=== PATIENT | male | born 1995 | race Caucasian/White ===

== ENCOUNTER 2018-09-23 22:50 | Emergency (ER) | payer SELFPAY ==
[~2018-09-23 22:50] MED LIST: ACET500C5 PO; CEPH-443 PO
== END 2018-09-23 22:55 | disposition left against medical advice (07) ==
LOC: FTE 22:50
DX: Z53.21 Procedure and treatment not carried out due to patient leaving prior to being seen by health care provider (principal)

== ENCOUNTER 2018-09-25 12:30 | Emergency (ER) | payer OTHER ==
[~2018-09-25] VITALS: Wt 97.6 kg
--- NOTE | 2018-09-25 16:04 | ERD ---
ER Documentation Chief Complaint Chief Complaint L index finger sutures to be removed: placed here last Saturday. HPI Patient is a 22-year-old male who presents the ER for concerns of suture removal. Patient sustained laceration to his left index finger on 09-14-18. Patient denies any fevers or chills. Patient does report taking Rx as prescribed. Patient denies any numbness or tingling. ROS All systems reviewed and are negative except as per history of present illness. Medications Home Meds Active Scripts Acetaminophen* (Tylophen*) 500 Mg Capsule, 1 CAP PO Q6H PRN for PAIN AND OR ELEVATED TEMP, #20 CAP Prov:NIRANJAN WOLFE-C 09/14/18 Cephalexin* (Keflex*) 500 Mg Capsule, 500 MG PO BID for 7 Days, CAP Prov:NIRANJAN WOLFE-C 09/14/18 Reported Medications [None] No Conflict Check 11/07/09 Allergies Allergies: Coded Allergies: No Known Allergies (Verified Allergy, Mild, 11/07/09) PMhx/Soc Medical and Surgical Hx: pt denies Medical Hx, pt denies Surgical Hx History of Surgery: No Anesthesia Reaction: No Hx Neurological Disorder: No Hx Respiratory Disorders: No Hx Cardiac Disorders: No Hx Psychiatric Problems: No Hx Miscellaneous Medical Probl: No Hx Alcohol Use: No Hx Substance Use: No Hx Tobacco Use: No Smoking Status: Never smoker FmHx Family History: No diabetes Physical Exam Vitals Vital Signs Date Temp Pulse Resp B/P (MAP) Pulse Ox O2 O2 Flow FiO2 Time Delivery Rate 09/25/18 98.7 53 16 152/78 96 13:20 (102) Physical Exam GENERAL: Well-developed, well-nourished male. Appears in no acute distress. HEAD: Normocephalic, atraumatic. EYES: Pupils are equally reactive bilaterally. EOMs grossly intact. No conjunctival erythema. NECK: Supple. No meningismus. Normal range of motion of the neck. LUNG: Clear to auscultation bilaterally. No rhonchi, wheezing, rales or coarse breath sounds. HEART: Regular rate and rhythm. No murmurs, rubs or gallops. EXTREMITIES: Equal pulses bilaterally. No peripheral clubbing, cyanosis or edema. No unilateral leg swelling. NEUROLOGIC: Alert and oriented. Moving all four extremities without any difficulty. Normal speech. Steady gait. SKIN: Healing 2 cm laceration noted to the left index finger. [address] No wound dehiscence. No active bleeding or discharge. Procedures/MDM Suture Removal by me: 2 Sutures removed with tweezers and scissors without incident. Wound shows no evidence of infection, foreign body, neurologic injury, vascular injury, open joint or tendon laceration. Patient to follow up PRN. Departure Diagnosis: Primary Impression: Encounter for removal of sutures Condition: Stable Patient Instructions: Suture Removal, No Complication Referrals: [facility] YOU HAVE RECEIVED A MEDICAL SCREENING EXAM AND THE RESULTS INDICATE THAT YOU DO NOT HAVE A CONDITION THAT REQUIRES URGENT TREATMENT IN THE EMERGENCY DEPARTMENT. FURTHER EVALUATION AND TREATMENT OF YOUR CONDITION CAN WAIT UNTIL YOU ARE SEEN IN YOUR DOCTORS OFFICE WITHIN THE NEXT 1-2 DAYS. IT IS YOUR RESPONSIBILITY TO MAKE AN APPOINTMENT FOR FOLOW-UP CARE. IF YOU HAVE A PRIMARY DOCTOR --you should call your primary doctor and schedule an appointment IF YOU DO NOT HAVE A PRIMARY DOCTOR YOU CAN CALL OUR PHYSICIAN REFERRAL HOTLINE AT IF YOU CAN NOT AFFORD TO SEE A PHYSICIAN YOU CAN CHOSE FROM THE FOLLOWING [facility] [address] [facility] [address] [facility] [address] [facility] [address] [facility] [facility] [address] [facility]. [facility]. [address] [facility]. [facility] YOU HAVE RECEIVED A MEDICAL SCREENING EXAM AND THE RESULTS INDICATE THAT YOU DO NOT HAVE A CONDITION THAT REQUIRES URGENT TREATMENT IN THE EMERGENCY DEPARTMENT. FURTHER EVALUATION AND TREATMENT OF YOUR CONDITION CAN WAIT UNTIL YOU ARE SEEN IN YOUR DOCTORS OFFICE WITHIN THE NEXT 1-2 DAYS. IT IS YOUR RESPONSIBILITY TO MAKE AN APPOINTMENT FOR FOLOW-UP CARE. IF YOU HAVE A PRIMARY DOCTOR --you should call your primary doctor and schedule and appointment IF YOU DO NOT HAVE A PRIMARY DOCTOR YOU CAN CALL OUR PHYSICIAN REFERRAL HOTLINE AT . IF YOU CAN NOT AFFORD TO SEE A PHYSICIAN YOU CAN CHOSE FROM THE FOLLOWING [facility] INSTITUTIONS: [facility] [address] [place] [address] [facility] [address] [place] [address] [facility] [address] [place] [address] Additional Instructions: Call your primary care doctor TOMORROW for an appointment during the next 1-2 days.See the doctor sooner or return here if your condition worsens before your appointment time. NIRANJAN WOLFE PA-C Sep 25, 2018 16:04
== END 2018-09-25 16:07 | disposition home or self-care (01) ==
LOC: FTE 12:30
DX: Z48.02 Encounter for removal of sutures (principal)
CPT/HCPCS: 99281

== ENCOUNTER 2019-01-21 00:54 | Emergency (ER) | payer OTHER ==
[~2019-01-21] VITALS: Ht 177.8 cm; Wt 98.7 kg
[2019-01-21 01:02] VITALS: Ht 177.8 cm; Wt 98.7 kg
[2019-01-21] MEDS ORDERED: CYCLOBENZAPRINE 10 MG TAB PO ONE (04:00)
[2019-01-21] MEDS ORDERED: IBUPROFEN 600 MG TAB PO ONE (04:00)
[2019-01-21] MEDS ORDERED: IBUP-1542 PO (04:01)
[2019-01-21] MEDS ORDERED: CYCL10TA7 PO (04:02)
[2019-01-21 05:03] VITALS: BP 134/77; PULSE 52; RESP 18
--- NOTE | 2019-01-27 05:00 | ERD ---
ER Documentation Chief Complaint Chief Complaint BACK PAIN RADIATING UP SHOULDER ON/OFF X3DAYS HPI 23yo M presents to ED for evaluation of right sided back/shoulder pain x 3 days. Pt denies recent trauma or injury, but admits to repetitive motions at work. Pt denies use of any medications for pain control and rates his current pain as an 8/10 in severity. He notes pain is worse with certain movements and better at rest. Pt denies saddle anesthesia, loss of motor function, bowel/bladder incontinence. Denies fevers, chills, hx of IVDA, CA, or immunocompromise. ROS All systems reviewed and are negative except as per history of present illness. Medications Home Meds Active Scripts Cyclobenzaprine Hcl* (Cyclobenzaprine Hcl*) 10 Mg Tablet, 10 MG PO TID for muscle spasms, #15 TAB Prov:MISAEL FLANAGAN PA-C 01/21/19 Ibuprofen* (Motrin*) 600 Mg Tab, 600 MG PO Q6 for back pain, #30 TAB Prov:MISAEL FLANAGNA PA-C 01/21/19 Acetaminophen* (Tylophen*) 500 Mg Capsule, 1 CAP PO Q6H PRN for PAIN AND OR ELEVATED TEMP, #20 CAP Prov:NIRANJAN WOLFE PA-C 09/14/18 Cephalexin* (Keflex*) 500 Mg Capsule, 500 MG PO BID for 7 Days, CAP Prov:NIRANJAN WOLFE PA-C 09/14/18 Reported Medications [None] No Conflict Check 11/07/09 Allergies Allergies: Coded Allergies: No Known Allergies (Verified Allergy, Mild, 11/07/09) PMhx/Soc Medical and Surgical Hx: pt denies Medical Hx, pt denies Surgical Hx History of Surgery: No Anesthesia Reaction: No Hx Neurological Disorder: No Hx Respiratory Disorders: No Hx Cardiac Disorders: No Hx Psychiatric Problems: No Hx Miscellaneous Medical Probl: No Hx Alcohol Use: No Hx Substance Use: No Hx Tobacco Use: No Smoking Status: Never smoker FmHx Family History: No diabetes, No coronary disease, No other Physical Exam Physical Exam General: alert, no acute distress and cooperative, A&Ox3 Head/Eyes: normocephalic, atraumatic, PERRL, conjunctiva normal Neck: supple, nontender, full ROM, no midline vertebral tenderness, no LAD Lungs: no respiratory distress, lungs CTA bilaterally, no wheezes, no rhonchi, no retractions Cardio: HR normal, no pedal edema Skin: normal to inspection, color normal, warm, dry, intact Abdomen: soft, nontender, no rebound, no guarding Back: Inspection normal, no midline or CVA tenderness, positive muscle spasms and tenderness over the right latissimus dorsi, Full ROM without pain or crepitus, bilateral positive straight leg raise, normal dorsiflexion BLE, NVI distally. Upper ext: Inspection normal, Normal range of motion to all major joints Lower ext: Inspection normal, Normal range of motion to all major joints, however weight bearing elicits pain to lower back Neuro: alert, normal speech, no motor deficits, no sensory deficits, slow steady gait Psych: calm, no SI/HI, no hallucinations Results 24 hrs Current Medications Medications Dose Sig/Boy Start Time Status Last (Trade) Ordered Route PRN Stop Time Admin Dose Reason Admin Ibuprofen 600 mg ONCE ONCE 01/21/19 DC 01/21/19 (Motrin) PO 04:00 04:06 01/21/19 04:01 10 mg ONCE ONCE 01/21/19 DC 01/21/19 Cyclobenzapri PO 04:00 04:06 ne HCl 01/21/19 04:01 (Flexeril) Procedures/MDM MDM: 23yo M presents to ED with complaint of right sided back/shoulder pain. Patients pain is aggravated by certain movements. Denies Sx of urinary incontinence, loss of bowel control, hematuria, dysuria, parenthesis and loss of ROM. At this time I have a low suspicion for fracture, epidural abscess, cauda equina syndrome, and osteomyelitis based off risk factors. The patients lack of neurological deficit and absence of physical exam findings further conclude that there is no need for emergent imaging at this time. Patients pain is most consistent with an acute muscle strain that is triggering spasms. I have instructed the patient to rest the muscle and avoid movements that trigger pain. I have prescribed the patient motrin for its anti-inflammatory effects and pain control, I confirmed that the patient does not have a PMHx of PUD or renal impairment. I have also prescribed Cyclobenzaprine for muscle relaxation. I have warned the patient of the sedating effects of this medication, and advised not to drive or operate heavy machinery. At this time the patient is stable for discharge and outpatient management. Advised to visit PCP or other community clinic within 1-2 business days. Departure Diagnosis: Primary Impression: Back pain Back pain location: back pain in other location Chronicity: acute Qualified Codes: M54.9 - Dorsalgia, unspecified Additional Impression: Muscle spasm of back Condition: Stable Patient Instructions: Muscle Spasm, Back Pain (Acute Or Chronic) MISAEL FLANAGAN PA-C Jan 27, 2019 05:00
== END 2019-01-21 05:04 | disposition home or self-care (01) ==
LOC: FTE 00:54
DX: M54.9 Dorsalgia, unspecified (principal); M62.830 Muscle spasm of back
CPT/HCPCS: 93005; Z7502; Z7610